=== PATIENT | female | born 2000 | race Caucasian/White ===

== ENCOUNTER 2020-12-19 21:07 | Emergency (ER) | payer BC ==
[~2020-12-19] VITALS: Ht 165.1 cm; Wt 63.6 kg
[2020-12-19 21:22] VITALS: TEMP 98.3
[2020-12-20 00:38] VITALS: BP 100/65; PULSE 75
== END 2020-12-20 00:45 | disposition home or self-care (01) ==
LOC: COL.ER 21:07
PROVIDERS: Nurse Practitioner
DX: S20.211A Contusion of right front wall of thorax, initial encounter (principal); S70.01XA Contusion of right hip, initial encounter; S00.83XA Contusion of other part of head, initial encounter; S60.512A Abrasion of left hand, initial encounter; S60.511A Abrasion of right hand, initial encounter; V00.131A Fall from skateboard, initial encounter
CPT/HCPCS: J2270; J2405; J2550